=== PATIENT | female | born 1990 | race Caucasian/White ===

== ENCOUNTER 2020-01-19 09:07 | Emergency (ER) | payer MEDICAID ==
[~2020-01-19] VITALS: Ht 152.4 cm; Wt 90.9 kg
[2020-01-19 09:19] VITALS: Ht 152.4 cm; Wt 90.9 kg
[2020-01-19] MEDS ORDERED: KEFLEX (09:20)
[2020-01-19] MEDS ORDERED: MORPHINE (09:20)
[2020-01-19] MEDS ORDERED: TORADOL (09:20)
[2020-01-19] MEDS ORDERED: BLOOD PRESSURE MED (09:40)
[2020-01-19 10:56] LABS: BASOPHILS 0.2 % (0-2); EOSINOPHILS 0.2 % (0-7); HEMOGLOBIN 12.3 g/dL (12-16); IMMATURE GRANULOCYTES 0.5 % (0-5); LYMPHOCYTES 9.5 % (15-50); MCH 30.5 pg (26.0-34.0); MCHC 35.1 g/dL (31.0-37.0); MCV 86.8 fL (80.0-100.0); MEAN PLATELET VOLUME 9.5 fL (7.4-10.4); MONOCYTES 8.5 % (2-11); NEUTROPHILS 81.1 % (40-80); PLATELET COUNT 113 10x3/uL (130-400); RBC 4.03 10x6/uL (4.00-5.40); RDW 12.3 % (11.5-14.5); WBC 5.5 10x3/uL (4.8-10.8)
[2020-01-19 11:09] LABS: ALBUMIN 2.8 g/dL (3.4-5.0); ANION GAP 9.9 mmol/L (8-16); BILIRUBIN - TOTAL 1.69 mg/dL (0.2-1.3); CALCIUM 8.6 mg/dL (8.5-10.1); CARBON DIOXIDE 27.7 mmol/L (21.0-32.0); CREATININE - SERUM 1.2 mg/dL (0.6-1.3); PROTEIN - SERUM 6.8 g/dL (6.4-8.2)
[2020-01-19 11:13] LABS: HCG SERUM NEGATIVE (NEGATIVE)
[2020-01-19 11:16] LABS: POTASSIUM - SERUM 2.6 mmol/L (3.5-5.1)
[2020-01-19 11:45] VITALS: BP 112/68
== END 2020-01-19 11:46 | disposition home or self-care (01) ==
LOC: D.ER 09:07
PROVIDERS: Family Medicine
DX: G43.909 Migraine, unspecified, not intractable, without status migrainosus (principal); E80.6 Other disorders of bilirubin metabolism; E87.6 Hypokalemia